=== PATIENT | male | born 1945 | race Caucasian/White ===

== ENCOUNTER 2017-06-05 18:25 | Emergency (ER) | payer OTHER ==
[~2017-06-05] VITALS: Ht 188 cm; Wt 103.8 kg
[~2017-06-05 18:25] MED LIST: ASPEC81 PO; ATOR-22 PO; FLX10 PO; METO25TA3 PO; NTRGSL/4 UT
[2017-06-05 18:33] VITALS: TEMP 36.8; Ht 188 cm; Wt 103.8 kg
--- NOTE | 2017-06-05 19:56 | DIAGNOSTIC IMAGING REPORT ---
L RIBS UNILATERAL WITH PA CHEST HISTORY: 71 years-old Male L rib injury acute left-sided rib pain status post fall COMPARISON: None available TECHNIQUE: PA view of the chest with 4 views of the left ribs FINDINGS: Cardiomediastinal and hilar silhouettes are within normal limits. No pneumothorax, overt pulmonary edema or large pleural effusion. Hazy subsegmental left basilar opacities. Eventration of the right hemidiaphragm. There is an acute minimally displaced fracture involving the anterolateral aspect of the left sixth rib. IMPRESSION: 1. Acute minimally displaced fracture involves the anterolateral left sixth rib. No pneumothorax. 2. Hazy left basilar opacities suggest atelectasis or pulmonary contusion. The above report was generated using voice recognition software. It may contain grammatical, syntax or spelling errors. Electronically signed by: Will Mcrae M.D. 06/05/2017 7:55 PM Dictated Date/Time: 06/05/2017 7:51 PM
[2017-06-05] MEDS ORDERED: TRAM-10 PO (20:39)
[2017-06-05] MEDS ORDERED: TRAMADOL HCL 50 MG HOME PACK PO ONE (20:45)
[2017-06-05 20:52] VITALS: BP 131/77; PULSE 51; O2SAT 96
--- NOTE | 2017-06-05 20:55 | EMERGENCY ROOM VISIT NOTE ---
History First contact with patient: 18:37 Chief Complaint: RIB PAIN Stated Complaint: SORE RIBS History of Present Illness The patient is a 71 year old male who presents to the Emergency Room with complaints of left rib pain that is worsened with breathing. The patient reports that around 1:30 PM this afternoon, he was working on a ladder when the ladder collapsed and he fell with a ladder. The patient reports landing on his left side with the latter under him. The patient did initially have the wind knocked out of him, but reports that those symptoms have improved. He does report pain with deep breathing. He denies any other injury, including head injury, neck pain, back pain or other extremity injuries. The patient is on a baby aspirin every other day. He rates his discomfort an 8 out of 10. Review of Systems 10 system review was performed and was negative except for pertinent positives and negatives as indicated in history of present illness Past Medical/Surgical History Medical Problems: (1) Actinic Keratosis (2) Coronary Atherosclerosis Of [place] Coronary Vessel (3) Hyperlipidemia Nec/Nos (4) Hypertension Nos Surgical Problems: (1) No history of previous surgery Family History FH: cancer FH: heart disease FH: hypertension Social History Smoking Status: Former Smoker Alcohol Use: none Marital Status: Occupation Status: retired Current/Historical Medications Scheduled Aspirin Enteric Coated (Ecotrin Or Generic *), 81 MG PO DAILY Atorvastatin (Lipitor), 20 MG PO DAILY Cyclobenzaprine Hcl (Flexeril *), 10 MG PO HS PRN Metoprolol Succ (Toprol Xl) (Toprol-Xl), 25 MG PO DAILY Nitroglycerin (Nitrostat), 0.4 MG UT PRN Scheduled PRN Tramadol (Ultram), 1-2 TAB PO Q4H PRN for Pain Physical Exam Vital Signs Date Time Temp Pulse Resp B/P (MAP) Pulse Ox O2 Delivery O2 Flow Rate FiO2 06/05/17 20:52 51 16 131/77 96 06/05/17 18:33 36.8 60 17 158/78 95 Room Air Physical Exam CONSTITUTIONAL: Healthy and well nourished. Alert and oriented X 3 with positive affect. Patient appears in mild to moderate discomfort from pain. HEENT: Normocephalic, atraumatic. Pupils equal, round and reactive. No scalp abrasions, hematoma, ecchymosis, raccoon's eyes, kumari sign, epistaxis, hemotympanum or subconjunctival hemorrhage. NECK: Full active range of motion without discomfort. RESPIRATORY: Clear to auscultation bilaterally with no wheezing, crackles, rhonchi or stridor. The breathing worsens the patient's discomfort. CARDIOVASCULAR: Regular rate and rhythm with no murmurs, rubs or gallops. GASTROINTESTINAL: Bowel sounds present in all quadrants. Soft and nontender to palpation. MUSCULOSKELETAL: Examination shows an abrasion and ecchymosis over the left lateral ribs. AP pressure against the sternum and back worsens his pain laterally. He has no focal tenderness to palpation of the costochondral joints or rib heads. Remaining musculoskeletal exam, including palpation of the thoracolumbar spine, shoulder and hip are normal. Distal pulses are intact. INTEGUMENTARY: No rash or other significant dermatologic conditions noted. NEUROLOGIC: Cranial nerves II-XII grossly intact. No focal neurologic deficits noted. Medical Decision & Procedures ER Provider Diagnostic Interpretation: My interpretation of left rib x-rays with a PA chest view shows a anterolateral sixth rib fracture with possible basilar pulmonary contusion. No pneumothorax appreciated. Radiologist report is as follows: L RIBS UNILATERAL WITH PA CHEST HISTORY: 71 years-old Male L rib injury acute left-sided rib pain status post fall COMPARISON: None available TECHNIQUE: PA view of the chest with 4 views of the left ribs FINDINGS: Cardiomediastinal and hilar silhouettes are within normal limits. No pneumothorax, overt pulmonary edema or large pleural effusion. Hazy subsegmental left basilar opacities. Eventration of the right hemidiaphragm. There is an acute minimally displaced fracture involving the anterolateral aspect of the left sixth rib. IMPRESSION: 1. Acute minimally displaced fracture involves the anterolateral left sixth rib. No pneumothorax. 2. Hazy left basilar opacities suggest atelectasis or pulmonary contusion. Medications Administered Medications (Trade) Dose Ordered Sig/Maria G Route Start Time Stop Time Status Last Admin Dose Admin Tramadol HCl (Ultram Home Pack) 1 homepack UD ONCE PO 06/05/17 20:45 06/05/17 20:46 DC 06/05/17 20:47 1 HOMEPACK ED Course Patient history and physical exam were performed. Nurse's notes were reviewed. Vital signs were reviewed and normal. The patient initially refused any analgesics. Left rib x-rays with a PA chest view shows a left anterolateral sixth rib fracture, and possible basilar lung contusion. X-rays were reviewed with Dr. Barber, ED attending physician who also performed an exam and agrees with workup, plan of care and outpatient management. The patient was encouraged alternate ibuprofen and Tylenol for pain. Because the patient does take aspirin, he was instructed to take these medications with food to avoid stomach irritation. The patient reports that he cannot tolerate opioids. He was provided a home pack and prescription for Ultram as needed for breakthrough pain. The patient was also dispensed an incentive spirometer with instructions for use. The patient was encouraged to follow-up closely with his PCP within the next 2-3 days. Return to the emergency department for progressively worsening pain, shortness of breath, fever or other concerning symptoms. The patient was happy with plan of care, and rated his discomfort a 6 out of 10 at the time of discharge. Medical Decision [place] Drug Monitoring Program Search Results: patient reviewed within database, no issues identified Medication Reconcilliation Current Medication List: was personally reviewed by me Blood Pressure Screening Patient's blood pressure: Normal blood pressure Impression Primary Impression: Left rib fracture Additional Impressions: Left pulmonary contusion Fall on/from ladder Departure Information Prescriptions Tramadol (Ultram) 50 Mg Tab 1-2 TAB PO Q4H Y for Pain, #20 TAB For Initial Treatment Prov: Miki Madsen PA 06/05/17 Referrals No Doctor, Assigned (PCP) Patient Instructions My [facility] Problem Qualifiers Primary Impression: Left rib fracture Encounter type: initial encounter Rib fracture type: single rib Fracture type: closed Qualified Codes: S22.32XA - Fracture of one rib, left side, initial encounter for closed fracture Additional Impressions: Left pulmonary contusion Encounter type: initial encounter Qualified Codes: S27.321A - Contusion of lung, unilateral, initial encounter Fall on/from ladder Encounter type: initial encounter Qualified Codes: W11.XXXA - Fall on and from ladder, initial encounter
--- NOTE | 2017-06-06 02:17 | EMERGENCY ROOM VISIT NOTE ---
ED Visit Note First contact with patient: 18:37 Physician Privacy Specialist Supervision Note: I interviewed and examined the patient. Discussed with and agree with findings and plan as documented in the note. Any exceptions or clarifications are listed here: [None] Documented By: Renetta Barber
== END 2017-06-05 20:53 | disposition home or self-care (01) ==
LOC: C.EDB 18:26 → C.EDD 20:53
DX: S22.32XA Fracture of one rib, left side, initial encounter for closed fracture (principal); W11.XXXA Fall on and from ladder, initial encounter; I10 Essential (primary) hypertension; E78.5 Hyperlipidemia, unspecified; I25.10 Atherosclerotic heart disease of native coronary artery without angina pectoris; Z79.82 Long term (current) use of aspirin; Z79.899 Other long term (current) drug therapy; Z87.891 Personal history of nicotine dependence; Z82.49 Family history of ischemic heart disease and other diseases of the circulatory system